=== PATIENT | female | born 1985 | race African-American/Black ===

== ENCOUNTER 2020-11-05 16:43 | Inpatient (IN) | payer MEDICAID ==
[~2020-11-05] VITALS: Ht 165.1 cm; Wt 94.6 kg
[~2020-11-05 16:43] MED LIST: FERR-71 PO; PREN1TAB76 PO
[2020-11-05] MEDS ORDERED: ONDANSETRON HCL 4MG/2ML INJ IV STA (17:08)
[2020-11-05] MEDS ORDERED: KETOROLAC 30MG/ML VIAL IV STA (17:08)
[2020-11-05] MEDS ORDERED: SODIUM CHLORIDE 0.9% 1,000 ML IV ONE (17:15)
[2020-11-05 18:47] LABS: BASOPHILS % 0.2 % (0.0-2.0); HEMATOCRIT. 33.8 % (36.0-48.0); HEMOGLOBIN. 11.2 g/dL (12.0-16.0); LYMPHOCYTES % 14.4 % (20.0-50.0); MEAN CORPUSCULAR HEMOGLOBIN 26.3 pg (28.0-32.0); MEAN CORPUSCULAR VOLUME 79.7 fL (81.0-99.0); MEAN PLATELET VOLUME 9.6 fl (7.4-10.4); MONOCYTES % 1.3 % (2.0-8.0); NEUTROPHILS % 84.1 % (40.0-76.0); PLATELET 237 x1000/uL (130-400); RED BLOOD CELL COUNT 4.24 mill/uL (4.2-5.4); RED CELL DISTRIBUTION WIDTH 15.8 % (11.6-14.6)
[2020-11-05 18:55] LABS: CHLORIDE 108 mEq/L (98-107); INR 1.1; PROTHROMBIN TIME 11.4 sec (9.6-11.0)
[2020-11-05 19:12] LABS: CLARITY URINE CLEAR (CLEAR); COLOR URINE YELLOW (YELLOW); KETONES URINE 3+ (NEGATIVE); LEUKOCYTE ESTERASE URINE 1+ (NEGATIVE); NITRITE URINE NEGATIVE (NEGATIVE); OCCULT BLOOD URINE TRACE (NEGATIVE); PH URINE 8.5 (4.5-8.0); PROTEIN URINE TRACE (NEGATIVE); SPECIFIC GRAVITY URINE 1.019 (1.005-1.030); UROBILINOGEN URINE 0.2 E.U./dL (0.2-1.0)
[2020-11-05] MEDS ORDERED: VISCOUS LIDOCAINE 2% 15 ML UDC PO ONE (19:45)
[2020-11-05] MEDS ORDERED: MAGNESIUM/ALUMINUM HYDROXIDE/SIMETHICONE 30ML UDC PO ONE (19:45)
[2020-11-05] MEDS ORDERED: IBUP-2029 MT (20:58)
[2020-11-05] MEDS ORDERED: ONDA4TAB11 PO (20:58)
[2020-11-05] MEDS ORDERED: ONDANSETRON HCL 4MG/2ML INJ IV ONE (21:15)
[2020-11-05] MEDS ORDERED: PANTOPRAZOLE 40MG DR TABLET PO ONE (21:30)
[2020-11-05] MEDS ORDERED: LACTATED RINGERS 1,000 ML IV SCH (23:30)
[2020-11-06 04:00] VITALS: BP 107/62
[2020-11-06 08:00] VITALS: BP 120/70
[2020-11-06 08:01] VITALS: BP 156/83
[2020-11-06] MEDS ORDERED: IPRATROPIUM/ALBUTEROL 0.5-3(2.5)MG/3ML NEB HHN PRN (08:15)
[2020-11-06] MEDS ORDERED: LORAZEPAM 0.5MG TABLET PO PRN (08:15)
[2020-11-06] MEDS ORDERED: ONDANSETRON HCL 4MG/2ML INJ IV PRN (08:15)
[2020-11-06] MEDS ORDERED: HYDROCODONE/ACETAMINOPHEN 5/325MG TABLET PO PRN (08:15)
[2020-11-06] MEDS ORDERED: ACETAMINOPHEN 325MG TABLET PO PRN ×2 (08:15)
[2020-11-06] MEDS ORDERED: DOCUSATE SODIUM 100MG CAPSULE PO PRN (08:15)
[2020-11-06] MEDS ORDERED: CLONIDINE 0.1MG TABLET PO PRN (08:15)
[2020-11-06] MEDS ORDERED: NALOXONE HCL 0.4MG/ML VIAL IV PRN (08:30)
[2020-11-06 12:00] VITALS: BP 127/70
[2020-11-06] MEDS ORDERED: LEVO500T89 MT (15:32)
[2020-11-06] MEDS ORDERED: METR500T MT (15:32)
[2020-11-06 16:00] VITALS: BP 127/70
[2020-11-06 16:15] VITALS: BP 127/70
== END 2020-11-06 17:10 | disposition home or self-care (01) ==
LOC: ER 16:43 → 6EST 11-06 01:34 → ENRESERV 11-06 02:34 → ER 11-06 02:53
PROVIDERS: ADMIT Internal Medicine; ATTEND Internal Medicine
DX: K80.62 Calculus of gallbladder and bile duct with acute cholecystitis without obstruction (principal); D50.9 Iron deficiency anemia, unspecified; Z20.822 Contact with and (suspected) exposure to COVID-19; R00.1 Bradycardia, unspecified; Z79.1 Long term (current) use of non-steroidal anti-inflammatories (NSAID); Z79.899 Other long term (current) drug therapy; Z98.891 History of uterine scar from previous surgery
CPT/HCPCS: 36415; 71045; 76705; 80053; 81003; 84484; 85025; 93005; 99285; C9803; J1885; J2405; J7030; J7120; U0003; U0005